=== PATIENT | male | born 1970 | race Hispanic/Latino ===

== ENCOUNTER → 2023-09-26 | Emergency (ER) | payer OTHER ==
[~2023-09-26] MED LIST: NA CHLORIDE 0.9% 500 ML ONE; PROMETHAZINE INJ 25 MG/ML AMP ONE
[2023-09-26 13:44] LABS: Absolute Lymphocytes (CBC) 0.6 K/uL (0.7-4.9); Hematocrit 45.1 % (39.6-49.0); Lymphocytes % 7.6 % (15.3-44.8); MCV 93.5 fL (80-100); MPV 7.8 fL (7.6-11.3); Platelets 229 thou/uL (152-406); RBC Red Blood Cell Count 4.83 M/uL (4.33-5.43)
[2023-09-26 13:46] LABS: SARS-CoV-2 Antigen Rapid Res Negative (Negative)
--- NOTE | 2023-09-26 13:47 | RAD REPORT ---
EXAM DESCRIPTION: Simon Single View09/26/2023 1:23 pm CLINICAL HISTORY: sob COMPARISON: none FINDINGS: There may be a small right pleural effusion Lungs appear clear of acute infiltrate. Heart is mildly enlarged. Pacemaker leads in place
[2023-09-26 13:49] LABS: Protime INR 3.04
[2023-09-26 14:01] LABS: Bilirubin Direct 2.3 mg/dL (0-0.2); Bilirubin Indirect, Calculated 1.8 mg/dL (0.2-0.8); Bilirubin Total 4.1 mg/dL (0.2-1.0); Magnesium 2.1 mg/dL (1.6-2.4); Potassium 4.3 mEq/L (3.5-5.1); Protein, Total 8.2 g/dL (6.4-8.2); Troponin High Sensitivity 28.8 pg/mL (<58.9)
--- NOTE | 2023-09-26 14:26 | EKG ---
Test Date: 2023-09-26 Test Time: 13:24:21 National Investigative Producer: PH MEASUREMENT RESULTS: Intervals: Rate: 61 DE: 160 QRSD: 100 QT: 496 QTc: 499 Marina: P: 49 DE: 160 QRS: 145 T: 101 INTERPRETIVE STATEMENTS: Normal sinus rhythm Anterolateral infarct, age undetermined Abnormal ECG No previous ECG available for comparison Electronically Signed On 09-26-23 14:25:32 SETTLEMENT PROCESSOR by Osmin Nixon
--- NOTE | 2023-09-26 14:52 | RAD REPORT ---
EXAM DESCRIPTION: CT - Chest Abdomen Pelvis W Cont - 09/26/2023 2:27 pm CLINICAL HISTORY: Chest and abdominal pain COMPARISON: none TECHNIQUE: Computed axial tomography of the chest, abdomen and pelvis was obtained. 100 cc Isovue-30 0 was administered intravenously. Oral contrast was not requested. This limits evaluation of bowel. All CT scans are performed using dose optimization technique as appropriate and may include automated exposure control or mA/KV adjustment according to patient size. FINDINGS: Some images are degraded by patient motion artifact Small to moderate right pleural effusion The lungs are clear No mediastinal or hilar lymphadenopathy. No pleural effusion. No pericardial effusion. Hepatic veins and IVC prominent. This may indicate hepatic venous congestion. Small gallstones. Pancreas is normal size. Mild peripancreatic stranding. Adrenals and kidneys unrema rkable No evidence of diverticulitis. Small amount of ascites IMPRESSION: Small to moderate right pleural effusion Hepatic venous congestion Cholelithiasis Mild peripancreatic stranding may indicate a mild pancreatitis Small amount of ascites
[2023-09-26 16:08] LABS: Troponin High Sensitivity 24.1 pg/mL (<58.9)
--- NOTE | 2023-09-26 16:15 | EDPHYS ---
Physician Documentation [facility] Name: Basil Haq Age: 53 yrs Sex: Male : 1970 Arrival Date: 09/26/2023 Time: 12:16 Bed 16 Private MD: ED Physician Forrest Chatman HPI: 09/26 12:30 This 53 yrs old Male presents to ER via Unassigned with complaints of flu symptoms. sb4 12:30 Patient states that he started experiencing nausea and vomiting last night as well as sb4 intermittent fevers. States that he has been feeling very weak and short of breath with exertion. He denies any sick contacts. He is visiting from [place]. He does have an extensive cardiac history with a history of heart failure on diuretics. He does report compliance with his medications. He denies any chest pain at this time. Historical: - Allergies: 14:31 No Known Allergies; ko1 - PMHx: 14:31 Congestive heart failure; Coronary atherosclerosis; Myocardial infarction; ko1 - PSHx: 14:31 Coronary artery bypass graft; Stented artery; ko1 - Immunization history:: Adult Immunizations up to date. - Social history:: Smoking status: Patient denies any tobacco usage or history of. ROS: 12:30 Cardiovascular: Negative for chest pain, palpitations, and edema, sb4 12:30 Constitutional: Positive for fever, malaise, 12:30 Respiratory: Positive for dyspnea on exertion, 12:30 Abdomen/GI: Positive for nausea and vomiting, constipation, 12:30 Neuro: Positive for weakness, 12:30 All other systems are negative, Exam: 12:30 Constitutional: This is a well developed, well nourished patient who is awake, alert, sb4 and in no acute distress. Head/Face: Normocephalic, atraumatic. Eyes: Extra-ocular motions intact. Periorbital areas with no swelling, redness, or edema. ENT: Mucous membranes moist. Cardiovascular: Regular rate and rhythm with a normal S1 and S2. Respiratory: Lungs have equal breath sounds bilaterally, clear to auscultation and percussion. No rales, rhonchi or wheezes noted. No increased work of breathing, no retractions or nasal flaring. Abdomen/GI: Soft, non-tender, no distension. Skin: Warm, dry with normal turgor. Normal color with no rashes, no lesions, and no evidence of cellulitis. MS/ Extremity: Pulses equal, no cyanosis. Neurovascular intact. Full, normal range of motion. Neuro: Awake and alert, GCS 15, oriented to person, place, time, and situation. Motor strength 5/5 in all extremities. Sensory grossly intact. Vital Signs: 12:30 BP 118 / 72; Pulse 60; Resp 15; Temp 99; Pulse Ox 97% on R/A; ko1 15:55 BP 133 / 75 Supine; Pulse 66; em1 16:00 BP 115 / 78 Sitting; Pulse 65; em1 16:05 BP 119 / 78 Standing; Pulse 63; em1 MDM: 12:17 Patient medically screened. sb4 12:30 Differential Diagnosis covid, flu, pneumonia, CHF exacerbation, dehydration. sb4 15:36 ED course: patient does endorse a history of alcoholism, states he no longer drinks sb4 alcohol. did not know he had any chronic liver issues. denies any known history of pancreatitis or current abdominal pain. 16:16 Data reviewed: vital signs, nurses notes, EMS record, lab test result(s), EKG, sb4 radiologic studies, and as a result, I will discharge patient. Consideration of Admission/Observation Escalation of care including admission/observation considered. Counseling: I had a detailed discussion with the patient and/or guardian regarding the historical points, exam findings, and any diagnostic results supporting the discharge/admit diagnosis, lab results, radiology results, the need for outpatient follow up, a marketing project manager, to return to the emergency department if symptoms worsen or persist or if there are any questions or concerns that arise at home. 09/26 12:17 Order name: Basic Metabolic Panel; Complete Time: 14:10 sb4 09/26 12:17 Order name: CBC with Diff; Complete Time: 13:48 sb4 09/26 12:17 Order name: LFT's; Complete Time: 14:10 sb4 09/26 12:17 Order name: Magnesium; Complete Time: 14:10 sb4 09/26 12:17 Order name: NT PRO-BNP; Complete Time: 14:10 sb4 09/26 12:17 Order name: PT-INR; Complete Time: 13:50 sb4 09/26 12:17 Order name: Troponin HS; Complete Time: 14:10 sb4 09/26 12:18 Order name: SARS RAPID; Complete Time: 13:48 sb4 09/26 12:18 Order name: Flu; Complete Time: 14:10 sb4 09/26 15:19 Order name: Lipase; Complete Time: 16:14 sb4 09/26 15:19 Order name: Troponin High Sensitivity; Complete Time: 16:14 sb4 09/26 12:17 Order name: XRAY Chest (1 view); Complete Time: 13:50 sb4 09/26 14:11 Order name: CT Chest, Abdomen, Pelvis - W/Contrast; Complete Time: 14:58 sb4 09/26 12:17 Order name: EKG; Complete Time: 12:19 sb4 09/26 12:17 Order name: Cardiac monitoring; Complete Time: 12:55 sb4 09/26 12:17 Order name: EKG - Nurse/Tech; Complete Time: 13:38 sb4 09/26 12:17 Order name: IV Saline Lock; Complete Time: 13:38 sb4 09/26 12:18 Order name: Labs collected and sent; Complete Time: 13:38 sb4 09/26 12:18 Order name: O2 Per Protocol; Complete Time: 12:55 sb4 09/26 12:18 Order name: O2 Sat Monitoring; Complete Time: 12:55 sb4 09/26 14:59 Order name: PO challenge; Complete Time: 15:07 sb4 EC:36 Rate is 61 beats/min. Rhythm is regular, Normal Sinus Rhythm. TN interval is normal at sb4 166 msec. QRS interval is normal at 98 msec. QT interval is prolonged at 502 msec. No Q waves. T waves are Normal. No ST changes noted. Clinical impression: No evidence of ischemia. Interpreted by me. Reviewed by me. Administered Medications: 13:36 CANCELLED (Physician Discretion): ondansetron 4 mg IVP once; over 2 minutes sb4 13:46 Drug: Promethazine IVP 12.5 mg IVP once Route: IVP; Site: right forearm; ph 15:08 Drug: NS 0.9% IV 500 ml IV at bolus once Route: IV; Rate: bolus; Site: right forearm; ko1 Disposition Summary: 09/26/23 16:14 Discharge Ordered Notes: Location: Home sb4 Problem: new sb4 Symptoms: have improved sb4 Condition: Stable sb4 Diagnosis - Alcoholic cirrhosis of liver with ascites sb4 - Dizziness and giddiness sb4 Followup: sb4 - With: Emergency Department - When: As needed - Reason: Trouble breathing, Worsening of condition Discharge Instructions: - Discharge Summary Sheet sb4 - Alcoholic Liver Disease, [id number] sb4 - Dizziness, [id number]-[id number] sb4 Forms: - Thank You Letter sb4 - Patient Portal Instructions sb4 - Leadership Thank You Letter sb4 Prescriptions: - Meclizine 25 mg Oral Tablet - take 1 tablet ORAL route every 8 hours As needed; 30 tablet; Refills: 0, sb4 Product Selection Permitted Signatures: Dispatcher [employer] Frances Curtis RN RN Cielo Jansen RN RN Lyly Gustafson PA-C PA-C sb4 Corrections: (The following items were deleted from the chart) 13:36 12:18 Ondansetron IVP 4 mg IVP once; over 2 minutes ordered. sb4 sb4
--- NOTE | 2023-09-26 16:15 | ER ---
Nurse's Notes [facility] Name: Basil Haq Age: 53 yrs Sex: Male : 1970 Arrival Date: 09/26/2023 Time: 12:16 Bed 16 Private MD: Diagnosis: Alcoholic cirrhosis of liver with ascites;Dizziness and giddiness Presentation: 09/26 12:30 Chief complaint: EMS states: called for nausea and vomiting with occasional fevers ko1 through the night, feels short of breath also. Is very weak today. 12:30 Method Of Arrival: EMS: [facility] ko1 12:30 Coronavirus screen: difficulty breathing, fever, nausea, vomiting. Ebola Screen: No ko1 symptoms or risks identified at this time. Initial Sepsis Screen: Does the patient meet any 2 criteria? No. Patient's initial sepsis screen is negative. Does the patient have a suspected source of infection? No. Patient's initial sepsis screen is negative. Risk Assessment: Do you want to hurt yourself or someone else? Patient reports no desire to harm self or others. Onset of symptoms was September 26, 2023. 12:30 Acuity: MELO 3 ko1 Triage Assessment: 13:00 General: Appears ill, Behavior is calm, cooperative, appropriate for age. Pain: ko1 Complains of pain in generalized weakness and body aches. Historical: - Allergies: 14:31 No Known Allergies; ko1 - PMHx: 14:31 Congestive heart failure; Coronary atherosclerosis; Myocardial infarction; ko1 - PSHx: 14:31 Coronary artery bypass graft; Stented artery; ko1 - Immunization history:: Adult Immunizations up to date. - Social history:: Smoking status: Patient denies any tobacco usage or history of. Screenin:00 [facility] ED Fall Risk Assessment (Adult) History of falling in the last 3 months, ko1 including since admission No falls in past 3 months (0 pts) Confusion or Disorientation No (0 pts) Intoxicated or Sedated No (0 pts) Impaired Gait No (0 pts) Mobility Assist Device Used No (0 pt) Altered Elimination No (0 pt) Score/Fall Risk Level 0 - 2 = Low Risk Oriented to surroundings, Maintained a safe environment, Educated pt \T\ family on fall prevention, incl call for assistance when getting out of bed, Assessed \T\ reinforced patient's understanding of fall precautions, Provided non-skid footwear, Hourly rounding (assess needs \T\ fall precautionary measures) done, Used ambulatory aids as needed (educated on \T\ assisted with), Used gait belt as appropriate. Abuse screen: Denies threats or abuse. Denies injuries from another. Nutritional screening: No deficits noted. Tuberculosis screening: No symptoms or risk factors identified. Assessment: 13:00 General: Appears ill, Behavior is calm, cooperative, appropriate for age. ko1 Vital Signs: 12:30 BP 118 / 72; Pulse 60; Resp 15; Temp 99; Pulse Ox 97% on R/A; ko1 15:55 BP 133 / 75 Supine; Pulse 66; em1 16:00 BP 115 / 78 Sitting; Pulse 65; em1 16:05 BP 119 / 78 Standing; Pulse 63; em1 ED Course: 12:17 Patient arrived in ED. sb4 12:17 Lyly Soares PA-C is PHCP. sb4 12:17 Forrest Chatman MD is Attending Physician. sb4 12:53 Cielo Saini, LYNETTE is Primary Nurse. ko1 12:54 Flu Sent. ko1 12:54 SARS RAPID Sent. ko1 13:00 No provider procedures requiring assistance completed. ko1 13:00 Arm band placed on right wrist. Patient placed in an exam room, on a stretcher, on ko1 diet counselor, on pulse oximetry. 13:00 Patient has correct armband on for positive identification. Placed in gown. Bed in low ko1 position. Call light in reach. Side rails up X 1. Provided Education on: na. Pulse ox on. NIBP on. Door closed. Noise minimized. Lights dimmed. Warm blanket given. 13:24 XRAY Chest (1 view) In Process Unspecified. EDMS 13:45 Initial lab(s) drawn, by me, sent to lab. Inserted saline lock: 22 gauge in right ph forearm, using aseptic technique. 13:46 Basic Metabolic Panel Sent. ph 13:46 CBC with Diff Sent. ph 13:46 LFT's Sent. ph 13:46 Magnesium Sent. ph 13:46 NT PRO-BNP Sent. ph 13:46 PT-INR Sent. ph 13:46 Troponin HS Sent. ph 14:29 CT Chest, Abdomen, Pelvis - W/Contrast In Process Unspecified. EDMS 14:31 Triage completed. ko1 15:35 Troponin High Sensitivity Sent. ko1 15:35 Lipase Sent. ko1 16:34 IV discontinued, intact, bleeding controlled, No redness/swelling at site. Pressure ko1 dressing applied. Administered Medications: 13:36 CANCELLED (Physician Discretion): ondansetron 4 mg IVP once; over 2 minutes sb4 13:46 Drug: Promethazine IVP 12.5 mg IVP once Route: IVP; Site: right forearm; ph 15:08 Drug: NS 0.9% IV 500 ml IV at bolus once Route: IV; Rate: bolus; Site: right forearm; ko1 Medication: 16:17 VIS not applicable for this client. ko1 Outcome: 16:14 Discharge ordered by MD. sb4 16:34 Discharged to home via wheelchair, with family, ko1 16:34 Discharge instructions given to patient, Instructed on discharge instructions, follow up and referral plans. medication usage, Demonstrated understanding of instructions, follow-up care, medications, Prescriptions given X 1, 16:35 Condition: stable ko1 16:35 Patient left the ED. ko1 Signatures: Dispatcher [employer] EDMS Boyd Lino em1 Frances Del Toro RN RN Cielo Jansen RN RN ko1 Lyly Soares PA-C PAGregoria sb4 Corrections: (The following items were deleted from the chart) 14:29 14:28 Method Of Arrival: EMS: [facility] ko1 ko1 14:31 14:28 Chief complaint: EMS states: called for nausea and vomiting with occasional ko1 fevers through the night, feels short of breath also. Is very weak today. ko1 14:31 14:28 Method Of Arrival: EMS: [facility] ko1 ko1
[2023-09-26 17:23] VITALS: BP 119/78; TEMP 99; O2SAT 97
== END ==
LOC: ER 12:16
DX: K70.31 Alcoholic cirrhosis of liver with ascites (principal); I50.9 Heart failure, unspecified; Z11.52 Encounter for screening for COVID-19; Z95.0 Presence of cardiac pacemaker; Z95.1 Presence of aortocoronary bypass graft
CPT/HCPCS: 93005; 85025; 80048; 36415; 83735; 85610; 80076; 84484 ×2; 83690; 83880; 87804 ×2; 71260; 74177; 71045; 87811; Q9967; J2550; J7040; 96374; 99284